=== PATIENT | male | born 1990 | race Caucasian/White ===

== ENCOUNTER → 2016-07-08 | Outpatient (CLI) | payer MEDICARE, MEDICAID ==
[~2016-07-08] MED LIST: ISOVUE-370 76% 100ML VIAL (Q9967) As Ordered ONE
--- NOTE | 2016-07-08 18:32 | REP ---
CT CHEST WITH CONTRAST: HISTORY: Lung nodule. CONTRAST: Isovue-370, 75 mL. COMPARISON: 10/31/2014 The 1.3 cm parenchymal nodule seen in the right lower lobe in the previous examination is not seen in the present examination. There are no new parenchymal nodules. The lungs are clear. There is no pleural effusion. Small lymph nodes less than 1 cm in size are present in the mediastinum. The heart is normal in size. The bony structure is intact. IMPRESSION: The 1.3 cm parenchymal nodule seen in the right lower lobe in the previous examination is not seen in the present examination. There are no new parenchymal nodules. Signed by Sanjiv Alicia MD 07/08/2016 06:35 P
== END ==
LOC: M RAD 16:36
PROVIDERS: ATTEND Family Medicine
DX: R91.1 Solitary pulmonary nodule (principal)
CPT/HCPCS: 71260; Q9967

== ENCOUNTER 2018-11-12 14:27 | Emergency (ER) | payer MEDICAID, MEDICARE, SELFPAY ==
[~2018-11-12] VITALS: Ht 177.8 cm; Wt 97.2 kg
[2018-11-12] MEDS ORDERED: VENTAER (14:40)
[2018-11-12] MEDS ORDERED: LISI10TA4 PO (14:40)
[2018-11-12] MEDS ORDERED: KEPP10002 PO (15:49)
[2018-11-12] MEDS ORDERED: levETIRAcetam INJection 1,000 MG in D5W 100 ML IV ONE (16:00)
[2018-11-12] MEDS ORDERED: IBUPROFEN 600 MG TAB PO ONE (16:00)
[2018-11-12 16:25] VITALS: BP 157/88
== END 2018-11-12 16:33 | disposition home or self-care (01) ==
LOC: M ED 14:27
DX: G40.909 Epilepsy, unspecified, not intractable, without status epilepticus (principal); F17.200 Nicotine dependence, unspecified, uncomplicated; Z88.8 Allergy status to other drugs, medicaments and biological substances; Z79.899 Other long term (current) drug therapy; Z91.14 Patient's other noncompliance with medication regimen
CPT/HCPCS: 96374; 99284; J1953

== ENCOUNTER 2018-11-23 01:36 | Emergency (ER) | payer MEDICAID ==
[~2018-11-23] VITALS: Ht 180.3 cm; Wt 93.2 kg
[~2018-11-23 01:36] MED LIST changes: -ISOVUE-370 76% 100ML VIAL (Q9967) As Ordered ONE; +KEPP10002 PO; +LISI10TA4 PO; +VENTAER
[2018-11-23] MEDS ORDERED: VALPROATE SOD IV ONE (02:00)
[2018-11-23] MEDS ORDERED: D5W IV ONE (02:00)
[2018-11-23] MEDS ORDERED: DEPA1TAB3 PO (02:13)
[2018-11-23 03:41] VITALS: BP 132/65
== END 2018-11-23 03:42 | disposition home or self-care (01) ==
LOC: M ED 01:36
DX: G40.909 Epilepsy, unspecified, not intractable, without status epilepticus (principal); S00.81XA Abrasion of other part of head, initial encounter; X58.XXXA Exposure to other specified factors, initial encounter; Y92.89 Other specified places as the place of occurrence of the external cause; I10 Essential (primary) hypertension; J45.909 Unspecified asthma, uncomplicated; Z79.899 Other long term (current) drug therapy; Z88.8 Allergy status to other drugs, medicaments and biological substances

== ENCOUNTER 2019-01-17 01:01 | Emergency (ER) | payer OTHER ==
[~2019-01-17] VITALS: Ht 177.8 cm; Wt 93.3 kg
[~2019-01-17 01:01] MED LIST changes: +DEPA1TAB3 PO
[2019-01-17 02:09] LABS: BASO # 0.1 10^3/uL (0.0-0.2); BASO % 0.9 % (0.0-1.0); EOS # 0.3 10^3/uL (0.0-0.50); EOS % 4.9 % (0.0-3.0); HEMATOCRIT 42.4 % (42.0-52.0); HEMOGLOBIN 14.8 g/dl (13.5-17.5); LYMPH # 2.8 10^3/uL (1.5-6.5); LYMPH % 41.8 % (24.0-44.0); MEAN CORPUSCULAR HEMOGLOBIN 30.3 pg (27.0-33.0); MEAN CORPUSCULAR HGB CONC 34.9 g/dl (32.0-36.5); MEAN CORPUSCULAR VOLUME 86.7 fl (80.0-96.0); MONO # 0.6 10^3/uL (0.0-0.8); MONO % 9.5 % (0.0-5.0); NEUTROPHILS # 2.9 10^3/uL (1.8-7.7); NEUTROPHILS % 42.6 % (36.0-66.0); PLATELET COUNT, AUTOMATED 268 10^3/uL (150-450); RED BLOOD COUNT 4.89 10^6/uL (4.30-6.10); WHITE BLOOD COUNT 6.7 10^3/uL (4.0-10.0)
[2019-01-17 02:25] LABS: AMPHETAMINES LEVEL URINE NEGATIVE (NEGATIVE); BARBITURATES URINE NEGATIVE (NEGATIVE); BENZODIAZEPINES URINE NEGATIVE (NEGATIVE); CANNABINOIDS URINE NEGATIVE (NEGATIVE); COCAINE METABOLITE URINE NEGATIVE (NEGATIVE); METHADONE URINE NEGATIVE (NEGATIVE); OPIATES URINE NEGATIVE (NEGATIVE); PHENCYCLIDINE URINE NEGATIVE (NEGATIVE)
[2019-01-17 02:29] LABS: BLOOD UREA NITROGEN 10 MG/DL (7-18); CALCIUM LEVEL 9.1 MG/DL (8.5-10.1); CARBON DIOXIDE LEVEL 28 MEQ/L (21-32); CHLORIDE LEVEL 107 MEQ/L (98-107); CREATININE FOR GFR 0.87 MG/DL (0.70-1.30); GLOMERULAR FILTRATION RATE > 60.0 (>60); GLUCOSE, FASTING 93 MG/DL (70-100); POTASSIUM SERUM 3.8 MEQ/L (3.5-5.1); SODIUM LEVEL 141 MEQ/L (136-145); VALPROIC ACID (DEPAKOTE) < 3.0 UG/ML (50.0-100.0)
[2019-01-17 03:00] VITALS: BP 148/78
== END 2019-01-17 03:40 | disposition left against medical advice (07) ==
LOC: M ED 01:01
DX: G40.909 Epilepsy, unspecified, not intractable, without status epilepticus (principal); Z91.19 Patient's noncompliance with other medical treatment and regimen; Z88.8 Allergy status to other drugs, medicaments and biological substances; F17.210 Nicotine dependence, cigarettes, uncomplicated

== ENCOUNTER 2019-02-21 21:02 | Emergency (ER) | payer OTHER ==
[~2019-02-21] VITALS: Ht 177.8 cm; Wt 96.3 kg
[2019-02-21 21:03] VITALS: BP 137/85
[2019-02-21] MEDS ORDERED: ADACEL/BOOSTRIX VACCINE (DIPHTH/PERTUSS/ACELL/TETANUS)0.5ML SYR (90715) IM ONE (21:30)
== END 2019-02-21 23:14 | disposition left against medical advice (07) ==
LOC: M ED 21:02
DX: Z53.21 Procedure and treatment not carried out due to patient leaving prior to being seen by health care provider (principal)

== ENCOUNTER 2019-11-16 21:03 | Emergency (ER) | payer OTHER ==
[~2019-11-16] VITALS: Ht 180.3 cm; Wt 90.9 kg
[2019-11-16] MEDS ORDERED: NS 1,000 ML IV ONE (21:45)
[2019-11-16 22:20] LABS: BASO # 0.1 10^3/uL (0.0-0.2); BASO % 1.1 % (0.0-1.0); EOS # 0.3 10^3/uL (0.0-0.5); EOS % 4.3 % (0.0-3.0); HEMATOCRIT 43.8 % (42.0-52.0); HEMOGLOBIN 15.1 g/dl (13.5-17.5); LYMPH # 2.9 10^3/uL (1.5-5.0); LYMPH % 39.8 % (24.0-44.0); MEAN CORPUSCULAR HEMOGLOBIN 30.1 pg (27.0-33.0); MEAN CORPUSCULAR HGB CONC 34.5 g/dl (32.0-36.5); MEAN CORPUSCULAR VOLUME 87.3 fl (80.0-96.0); MONO # 0.8 10^3/uL (0.0-0.8); MONO % 10.3 % (0.0-5.0); NEUTROPHILS # 3.2 10^3/uL (1.5-8.5); NEUTROPHILS % 44.2 % (36.0-66.0); PLATELET COUNT, AUTOMATED 253 10^3/uL (150-450); RED BLOOD COUNT 5.02 10^6/uL (4.30-6.10); WHITE BLOOD COUNT 7.3 10^3/uL (4.0-10.0)
[2019-11-16 22:53] LABS: ACETAMINOPHEN LEVEL < 2.0 UG/ML (10.0-30.0); ALBUMIN 3.8 GM/DL (3.2-5.2); ALT/SGPT 52 U/L (12-78); BILIRUBIN,DIRECT 0.1 MG/DL (0.0-0.2); BILIRUBIN,TOTAL 0.4 MG/DL (0.2-1.0); BLOOD UREA NITROGEN 8 MG/DL (7-18); CALCIUM LEVEL 8.6 MG/DL (8.5-10.1); CARBON DIOXIDE LEVEL 30 MEQ/L (21-32); CHLORIDE LEVEL 104 MEQ/L (98-107); CK-MB VALUE MASS 2.9 NG/ML (<3.6); CPK CREATINE PHOSPHOKINASE 310 U/L (39-308); CREATININE FOR GFR 0.82 MG/DL (0.70-1.30); ETHYL ALCOHOL (ETHANOL) < 0.003 % (0.000-0.010); GLOMERULAR FILTRATION RATE > 60.0 (>60); GLUCOSE, FASTING 83 MG/DL (70-100); MB/CK RELATIVE INDEX 0.94 (< OR =4); SALICYLATE LEVEL 2.6 MG/DL (5.0-30.0); SODIUM LEVEL 141 MEQ/L (136-145); TROPONIN I < 0.02 NG/ML (< 0.10); VALPROIC ACID (DEPAKOTE) 97.1 UG/ML (50.0-100.0)
[2019-11-16 23:32] LABS: AMPHETAMINES LEVEL URINE NEGATIVE (NEGATIVE); BARBITURATES URINE NEGATIVE (NEGATIVE); BENZODIAZEPINES URINE NEGATIVE (NEGATIVE); CANNABINOIDS URINE NEGATIVE (NEGATIVE); COCAINE METABOLITE URINE NEGATIVE (NEGATIVE); METHADONE URINE NEGATIVE (NEGATIVE); OPIATES URINE NEGATIVE (NEGATIVE); PHENCYCLIDINE URINE NEGATIVE (NEGATIVE)
[2019-11-16 23:45] VITALS: BP 116/61
--- NOTE | 2019-11-17 06:43 | ECGEPIP ---
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
== END 2019-11-16 23:58 | disposition home or self-care (01) ==
LOC: M ED 21:03
DX: G40.919 Epilepsy, unspecified, intractable, without status epilepticus (principal); F17.200 Nicotine dependence, unspecified, uncomplicated; Z79.51 Long term (current) use of inhaled steroids; Z79.899 Other long term (current) drug therapy; Z88.8 Allergy status to other drugs, medicaments and biological substances
CPT/HCPCS: 80048; 80076; 80164; 80307; 82550; 82553; 84443; 85025; 93005; 93041; 94760; 96360; 99285; G0480

== ENCOUNTER 2019-12-18 18:17 | Emergency (ER) | payer OTHER ==
[~2019-12-18] VITALS: Ht 180.3 cm; Wt 103.0 kg
[2019-12-18] MEDS ORDERED: LAMO25TA4 (18:21)
[2019-12-18 19:00] VITALS: BP 133/65
[2019-12-18] MEDS ORDERED: lamoTRIgine 25 MG TAB PO ONE (19:00)
== END 2019-12-18 19:15 | disposition home or self-care (01) ==
LOC: EDBD 18:17 → M ED 18:17
DX: G40.909 Epilepsy, unspecified, not intractable, without status epilepticus (principal); Z91.14 Patient's other noncompliance with medication regimen; I10 Essential (primary) hypertension; J45.909 Unspecified asthma, uncomplicated; R91.1 Solitary pulmonary nodule; F81.9 Developmental disorder of scholastic skills, unspecified; Z72.0 Tobacco use; Z79.899 Other long term (current) drug therapy; Z88.8 Allergy status to other drugs, medicaments and biological substances

== ENCOUNTER 2020-07-06 14:25 | Emergency (ER) | payer OTHER ==
[~2020-07-06] VITALS: Ht 180.3 cm; Wt 104.8 kg
[~2020-07-06 14:25] MED LIST changes: +LAMO25TA4; +LISI10TA22 PO; -LISI10TA4 PO
--- OUTSIDE RECORDS SUMMARY | 2020-07-06 14:40 | CCD ---
Author Author [facility] Organization [facility] Address Unknown Phone Unavailable Care Team Providers Care Mold Parter Name Role Phone VIKTORIA CRUZ, JORDAN Unavailable Unavailab VIKTORIA Hummel, MSN Unavailable Unavailab VIKTORIA Hummel, MSN Unavailable Unavailab VIKTORIA Hummel, MSN Unavailable Unavailab le CRUZ, VIKTORIA JENNY RADIO ANTENNA INSTALLER-C, MSN Unavailable Unavailab le CRUZ, VIKTORIA JENNY RADIO ANTENNA INSTALLER-C, MSN Unavailable Unavailab le CRUZ, VIKTORIA JENNY RADIO ANTENNA INSTALLER-C, MSN Unavailable Unavailab le CRUZ, VIKTORIA JENNY RADIO ANTENNA INSTALLER-C, MSN Unavailable Unavailab le CRUZ, VIKTORIA JENNY RADIO ANTENNA INSTALLER-C, MSN Unavailable Unavailab le CRUZ, VIKTORIA JENNY RADIO ANTENNA INSTALLER-C, MSN Unavailable Unavailab le CRUZ, VIKTORIA JENNY RADIO ANTENNA INSTALLER-C, MSN Unavailable Unavailab le CRUZ, VIKTORIA JENNY RADIO ANTENNA INSTALLER-C, MSN Unavailable Unavailab le CRUZ, VIKTORIA JENNY RADIO ANTENNA INSTALLER-C, MSN Unavailable Unavailab le CRUZ, VIKTORIA JENNY RADIO ANTENNA INSTALLER-C, MSN Unavailable Unavailab le CRUZ, VIKTORIA JENNY RADIO ANTENNA INSTALLER-C, MSN Unavailable Unavailab le CRUZ, VIKTORIA JENNY RADIO ANTENNA INSTALLER-C, MSN Unavailable Unavailab le CRUZ, VIKTORIA JENNY RADIO ANTENNA INSTALLER-C, MSN Unavailable Unavailab le CRUZ, VIKTORIA JENYN RADIO ANTENNA INSTALLER-C, MSN Unavailable Unavailab le CRUZ, VIKTORIA JENNY RADIO ANTENNA INSTALLER-C, MSN Unavailable Unavailab le CRUZ, VIKTORIA JENNY RADIO ANTENNA INSTALLER-C, MSN Unavailable Unavailab le CRUZ, VIKTORIA JENNY RADIO ANTENNA INSTALLER-C, MSN Unavailable Unavailab le CRUZ, VIKTORIA JENNY RADIO ANTENNA INSTALLER-C, MSN Unavailable Unavailab le CRUZ, VIKTORIA JENNY RADIO ANTENNA INSTALLER-C, MSN Unavailable Unavailab le CRUZ, VIKTORIA JENNY RADIO ANTENNA INSTALLER-C, MSN Unavailable Unavailab le CRUZ, VIKTORIA JENNY RADIO ANTENNA INSTALLER-C, MSN Unavailable Unavailab le CRUZ, VIKTORIA JENNY RADIO ANTENNA INSTALLER-C, MSN Unavailable Unavailab le CRUZ, VIKTORIA JENNY RADIO ANTENNA INSTALLER-C, MSN Unavailable Unavailab le CRUZ, VIKTORIA JENNY RADIO ANTENNA INSTALLER-C, MSN Unavailable Unavailab le CRZU, VIKTORIA JENNY RADIO ANTENNA INSTALLER-C, MSN Unavailable Unavailab le CRUZ, VIKTORIA JENNY RADIO ANTENNA INSTALLER-C, MSN Unavailable Unavailab le CRUZ, VIKTORIA JENNY RADIO ANTENNA INSTALLER-C, MSN Unavailable Unavailab le CRUZ, VIKTORIA JENNY RADIO ANTENNA INSTALLER-C, MSN Unavailable Unavailab le CURZ, VIKTORIA JENNY RADIO ANTENNA INSTALLER-C, MSN Unavailable Unavailab le CRUZ, VIKTORIA JENNY RADIO ANTENNA INSTALLER-C, MSN Unavailable Unavailab le CRUZ, VIKTORIA JENNY RADIO ANTENNA INSTALLER-C, MSN Unavailable Unavailab le CRUZ, VIKTORIA JENNY RADIO ANTENNA INSTALLER-C, MSN Unavailable Unavailab le CRUZ, VIKTORIA JENNY RADIO ANTENNA INSTALLER-C, MSN Unavailable Unavailab le CRUZ, VIKTORIA JENNY RADIO ANTENNA INSTALLER-C, MSN Unavailable Unavailab le CRUZ, VIKTORIA JENNY RADIO ANTENNA INSTALLER-C, MSN Unavailable Unavailab le CRUZ, VIKTORIA JENNY RADIO ANTENNA INSTALLER-C, MSN Unavailable Unavailab le CRUZ, VIKTORIA JENNY RADIO ANTENNA INSTALLER-C, MSN Unavailable Unavailab le CRUZ, VIKTORIA JENNY RADIO ANTENNA INSTALLER-C, MSN Unavailable Unavailab le LIU SR, ABDELRAHMAN HARVEY MD Unavailable Unavailable LIU SR, ABDELRAHMAN HARVEY MD Unavailable Unavailable LIU SR, ABDELRAHMAN HARVEY MD Unavailable Unavailable LIU SR, ABDELRAHMAN HARVEY MD Unavailable Unavailable LIU SR, ABDELRAHMAN HARVEY MD Unavailable Unavailable LIU SR, ABDELRAHMAN HARVEY MD Unavailable Unavailable LIU SR, ABDELRAHMAN HARVEY MD Unavailable Unavailable LIU SR, ABDELRAHMAN HARVEY MD Unavailable Unavailable LIU SR, ABDELRAHMAN HARVEY MD Unavailable Unavailable LIU SR, ABDELRAHMAN HARVEY MD Unavailable Unavailable LIU SR, ABDELRAHMAN HARVEY MD Unavailable Unavailable LIU SR, ABDELRAHMAN HARVEY MD Unavailable Unavailable LIU SR, ABDELRAHMAN HARVEY MD Unavailable Unavailable LIU SR, ABDELRAHAMN HARVEY MD Unavailable Unavailable LIU SR, ABDELRAHMAN HARVEY MD Unavailable Unavailable LIU SR, ABDELRAHMAN HARVEY MD Unavailable Unavailable LIU SR, ABDELRAHMAN HARVEY MD Unavailable Unavailable LIU SR, ABDELRAHMAN HARVEY MD Unavailable Unavailable LIU SR, ABDELRAHMAN HARVEY MD Unavailable Unavailable LIU SR, ABDELRAHMAN HARVEY MD Unavailable Unavailable LIU SR, ABDELRAHMAN HARVEY MD Unavailable Unavailable LIU SR, ABDELRAHMAN HARVEY MD Unavailable Unavailable LIU SR, ABDELRAHMAN HARVEY MD Unavailable Unavailable LIU SR, ABDELRAHMAN HARVEY MD Unavailable Unavailable LIU SR, ABDELRAHMAN HARVEY MD Unavailable Unavailable LIU SR, ABDELRAHMAN HARVEY MD Unavailable Unavailable LIU SR, ABDELRAHMAN HARVEY MD Unavailable Unavailable LIU SR, ABDELRAHMAN HARVEY MD Unavailable Unavailable LIU SR, ABDELRAHMAN HARVEY MD Unavailable Unavailable LIU SR, ABDELRAHMAN HARVEY MD Unavailable Unavailable LIU SR, ABDELRAHMAN HARVEY MD Unavailable Unavailable LIU SR, ABDELRAHMAN HARVEY MD Unavailable Unavailable LIU SR, ABDELRAHMAN CANDICE MD Unavailable Unavailable LIU SR, ABDELRAHMAN CANDICE MD Unavailable Unavailable LIU SR, ABDELRAHMAN CANDICE MD Unavailable Unavailable LIU SR, ABDELRAHMAN CANDICE MD Unavailable Unavailable LIU SR, ABDELRAHMAN CANDICE MD Unavailable Unavailable LIU SR, ABDELRAHMAN CANDICE MD Unavailable Unavailable LIU SR, ABDELRAHMAN CANDICE MD Unavailable Unavailable LIU SR, ABDELRAHMAN CANDICE MD Unavailable Unavailable LIU SR, ABDELRAHMAN CANDICE MD Unavailable Unavailable LIU SR, ABDELRAHMAN CANDICE MD Unavailable Unavailable LIU SR, ABDELRAHMAN CANDICE MD Unavailable Unavailable LIU SR, ABDELRAHMAN CANDICE MD Unavailable Unavailable LIU SR, ABDELRAHMAN CANDICE MD Unavailable Unavailable LIU SR, ABDELRAHMAN CANDICE MD Unavailable Unavailable LIU SR, ABDELRAHMAN CANDICE MD Unavailable Unavailable LIU SR, ABDELRAHMAN CANDICE MD Unavailable Unavailable LIU SR, ABDELRAHMAN CANDICE MD Unavailable Unavailable LIU SR, ABDELRAHMAN CANDICE MD Unavailable Unavailable LIU SR, ABDELRAHMAN CANDICE MD Unavailable Unavailable LIU SR, ABDELRAHMAN CANDICE MD Unavailable Unavailable LIU SR, ABDELRAHMAN CANDICE MD Unavailable Unavailable LIU SR, ABDELRAHMAN CANDICE MD Unavailable Unavailable Re-disclosure Warning The records that you are about to access may contain information from federally-assisted alcohol or drug abuse programs. If such information is present, then the following federally mandated warning applies: This information has been disclosed to you from records protected by federal confidentiality rules (42 CFR part 2). The federal rules prohibit you from making any further disclosure of this information unless further disclosure is expressly permitted by the written consent of the person to whom it pertains or as otherwise permitted by 42 CFR part 2. A general authorization for the release of medical or other information is NOT sufficient for this purpose. The Federal rules restrict any use of the information to criminally investigate or prosecute any alcohol or drug abuse patient.The records that you are about to access may contain highly sensitive health information, the redisclosure of which is protected by Article 27-F of the [facility] Public Health law. If you continue you may have access to information: Regarding HIV / AIDS; Provided by facilities licensed or operated by the [facility] Office of Mental Health; or Provided by the [facility] Office for People With Developmental Disabilities. If such information is present, then the following [facility] mandated warning applies: This information has been disclosed to you from confidential records which are protected by state law. State law prohibits you from making any further disclosure of this information without the specific written consent of the person to whom it pertains, or as otherwise permitted by law. Any unauthorized further disclosure in violation of state law may result in a fine or correction sentence or both. A general authorization for the release of medical or other information is NOT sufficient authorization for further disc losure. Encounters Encounter Providers Location Date Indications Data Source(s ) [facility] 06/12/2020 12:00:00 AM EST eCW1 ([facility] 02/18/2020 12:00:00 AM EDT eCW1 ([facility]) [facility] 01/31/2020 12:00:00 AM EDT eCW1 ([facility]) [facility] 01/25/2020 12:00:00 AM EDT eCW1 ([facility] 12/27/2019 12:00:00 AM EDT eCW1 ([facility]) [facility] 12/14/2019 12:00:00 AM EDT eCW1 ([facility]) Outpatient Attender: CANDICE LIU SR 11/17/2019 03:05:00 PM EDT [facility] 11/17/2019 12:00:00 AM EDT eCW1 ([facility]) Outpatient Attender: CANDICE LIU SRReferrer: JENNY RAE, MSN 10/15/2018 11:38:00 AM EDT - 10/15/2018 11:38:00 AM EDT [facility] Medications Medication Brand Name Start Date Product Form Dose Route Admi nistrative Instructions Pharmacy Instructions Status Indications Reaction Description Data Source(s) 25 mg 06/13/2020 12:00:00 AM EST tablet 60 TAKE 2 TABLETS BY MOUTH DAILY TAKE 2 TABLETS BY MOUTH DAILY SOLD: 06/14/2020 [facility] 5-325 mg 04/12/2020 12:00:00 AM EDT tablet 16 TAKE ONE TABLET BY MOUTH EVERY 6 HOURS NEEDED FOR PAIN, MAXIMUM DAILY DOSE = FOUR TABLETS TAKE ONE TABLET BY MOUTH EVERY 6 HOURS NEEDED FOR PAIN, MAXIMUM DAILY DOSE = FOUR TABLETS SOLD: 04/12/2020 [facility] 500 mg 04/12/2020 12:00:00 AM EDT capsule 21 TAKE ONE CAPSULE BY MOUTH EVERY 8 HOURS UNTIL FINISHED, MAXIMUM DAILY DOSE = 3 TAKE ONE CAPSULE BY MOUTH EVERY 8 HOURS UNTIL FINISHED, MAXIMUM DAILY DOSE = 3 SOLD: 04/12/2020 [facility] 25 mg 02/27/2020 12:00:00 AM EDT tablet 60 TAKE TWO TABLETS BY MOUTH EVERY DAY TAKE TWO TABLETS BY MOUTH EVERY DAY SOLD: 04/09/2020 [facility] 25 mg 02/27/2020 12:00:00 AM EDT tablet 60 TAKE TWO TABLETS BY MOUTH EVERY DAY TAKE TWO TABLETS BY MOUTH EVERY DAY SOLD: 02/28/2020 [facility] 90 mcg/actuation 02/15/2020 12:00:00 AM EDT HFA aerosol inha ler 18 INHALE 2 PUFFS BY MOUTH EVERY 6 HOURS NEEDED INHALE 2 PUFFS BY MOUTH EVERY 6 HOURS NEEDED SOLD: 02/15/2020 [facility] 25 mg 12/15/2019 12:00:00 AM EDT tablet 60 TAKE TWO TABLETS BY MOUTH EVERY DAY TAKE TWO TABLETS BY MOUTH EVERY DAY SOLD: 12/16/2019 [facility] 25 mg 12/15/2019 12:00:00 AM EDT tablet 60 TAKE TWO TABLETS BY MOUTH EVERY DAY TAKE TWO TABLETS BY MOUTH EVERY DAY SOLD: 01/24/2020 [facility] lamotrigine 25 MG Oral Tablet Lamotrigine 25 MG Lamotrigine 25 MG 11/17/2019 12:00:00 AM EDT 2.0 {tablet} active [place] motrigine 25 MG eCW1 ([facility]) lamotrigine 25 MG Oral Tablet Lamotrigine 25 MG Lamotrigine 25 MG 11/17/2019 12:00:00 AM EDT 2.0 {tablet} active [place] motrigine 25 MG eCW1 ([facility]) lamotrigine 25 MG Oral Tablet Lamotrigine 25 MG Lamotrigine 25 MG 11/17/2019 12:00:00 AM EDT 1.0 {tablet} active [place] motrigine 25 MG eCW1 ([facility]) lamotrigine 25 MG Oral Tablet Lamotrigine 25 MG Lamotrigine 25 MG 11/17/2019 12:00:00 AM EDT 2.0 {tablet} active [place] motrigine 25 MG eCW1 ([facility]) 25 mg 11/17/2019 12:00:00 AM EDT tablet 45 TAKE ONE TABLET BY MOUTH EVERY DAY FOR 2 WEEKS, THEN INCREASE TO 2 TABLETS ONCE DAILY FOR 2 WEEKS TAKE ONE TABLET BY MOUTH EVERY DAY FOR 2 WEEKS, THEN INCREASE TO 2 TABLETS ONCE DAILY FOR 2 WEEKS SOLD: 11/17/2019 [facility] lamotrigine 25 MG Oral Tablet Lamotrigine 25 MG Lamotrigine 25 MG 11/17/2019 12:00:00 AM EDT 2.0 {tablet} active La motrigine 25 MG eCW1 ([facility]) lamotrigine 25 MG Oral Tablet Lamotrigine 25 MG Lamotrigine 25 MG 11/17/2019 12:00:00 AM EDT 2.0 {tablet} active La motrigine 25 MG eCW1 ([facility]) lamotrigine 25 MG Oral Tablet Lamotrigine 25 MG Lamotrigine 25 MG 11/17/2019 12:00:00 AM EDT 2.0 {tablet} active La motrigine 25 MG eCW1 ([facility]) 500 mg 11/30/2018 12:00:00 AM EDT tablet,delayed release (DR/EC) 270 TAKE ONE TABLET BY MOUTH THREE TIMES A DAY TAKE ONE TABLET BY MOUTH THREE TIMES A D AY SOLD: 05/30/2019 [facility] Insurance Providers Payer name Policy type / Coverage type Policy ID Covered libertarian ID Covered libertarian's relationship to adkins Policy Adkins Plan Information [facility] COMMUNITY PLAN [facility] [id number] [facility] MEDICAID [id number] S [id number] [facility] COMMUNITY PLAN [facility] [id number] SP [id number] MEDICAID [id number] SP [id number] [facility] [id number] MEDICARE [id number] SP [id number] SELF PAY ONLY SP [facility]-Medicaid [id number] [facility] [id number] [facility] MEDICAID [id number] S [id number] [employer] MEDICAID [id number] S [id number] [facility]-Medicaid [id number] [facility]-Medicaid [id number] [facility]-Medicaid [id number] [facility]-Medicaid [id number] [facility]-Medicaid [id number] [facility]-Medicaid [id number] [facility] [id number] [facility]-Medicaid [id number] Medicare P [id number] S [id number] MEDICAID [id number] S [id number] SELF PAY SP [id number] S [id number] MEDICARE [id number] SP [id number] Self Pay P UNAVAILABLE S UNAVAILA BLE Medicaid Dental P UNAVAILABLE S UN AVAILABLE MEDICAID M [id number] S [id number] MEDICARE C [id number] S [id number] MEDICAID UNAVAILABLE UNAVAILA BLE BLUE [employer] [place] PL[employer] [id number] SP [id number] WELL[employer]ARE [id number] SP [id number] [facility] BLUE [id number] SP [id number] Problems, Conditions, and Diagnoses Code Display Name Description Problem Type Effective Dates Data Source(s) E66.9 [id number] Obesity (BMI 30.0-34.9) Problem 0 11/17/2019 12:00:00 AM EDT eCW1 ([facility]) F17.210 Nicotine dependence, cigarettes, uncompl icated NICOTINE DEPENDENCE, CIGARETTES, UNCOMPLICATED Diagnosis 11/17/2019 03:05:00 PM EDT [facility] E66.9 Obesity, unspecified OBESITY, UNSPECIFIED Diagnosis 11/17/2019 03:05:00 PM EDT [facility] R56.9 Unspecified convulsions UNSPECIFIED CONVULSIONS Diagno sis 11/17/2019 03:05:00 PM EDT [facility] F17.200 Nicotine dependence, unspecified, uncomp licated NICOTINE DEPENDENCE, UNSPECIFIED, UNCOMPLICATED Diagnosis 11/17/2019 03:05:00 PM EDT [facility] Vital Signs ID Date Data Source UNK Name Value Range Interpretation Code Description Data Source(s) Oxygen saturation in Arterial blood by Pulse oximetry 98 % 98 % eCW1 ([facility]) Respiratory rate 18 /min 18 /min eCW1 ([facility]) Heart rate 69 /min 69 /min eCW1 ([facility]) Body temperature 98.6 [degF] 98.6 [degF] eCW1 ( [facility]) Body mass index (BMI) [Ratio] 33.23 kg/m2 33.23 kg/m2 eCW1 ([facility]) Body weight 231.6 [lb_av] 231.6 [lb_av] eCW1 ([facility]) Body height 70 [in_i] 70 [in_i] eCW1 ([facility]) Patient Treatment Plan of Care Planned Activity Planned Date Details Description Data Source (s) lamotrigine 25 MG Oral Tablet 11/17/2019 12:00:00 AM EDT eCW1 ([facility]) lamotrigine 25 MG Oral Tablet 11/17/2019 12:00:00 AM EDT eCW1 ([facility]) lamotrigine 25 MG Oral Tablet 11/17/2019 12:00:00 AM EDT eCW1 ([facility]) lamotrigine 25 MG Oral Tablet 11/17/2019 12:00:00 AM EDT eCW1 ([facility]) lamotrigine 25 MG Oral Tablet 11/17/2019 12:00:00 AM EDT eCW1 ([facility]) lamotrigine 25 MG Oral Tablet 11/17/2019 12:00:00 AM EDT eCW1 ([facility]) lamotrigine 25 MG Oral Tablet 11/17/2019 12:00:00 AM EDT eCW1 ([facility])
--- OUTSIDE RECORDS SUMMARY | 2020-07-06 14:40 | CCD ---
Author Author [facility] Organization [facility] Address Unknown Phone Unavailable Care Team Providers Care Hydraulic Elevator Constructor Name Role Phone Halina Wesley Unavailable PROBLEMS Type Condition ICD9-CM Code FKI40-FQ Code Onset Dates Condition S tatus SNOMED Code Notes Problem History of marijuana use Z87.898 Active 0517241 00 Problem BMI 30.0-30.9,adult Z68.30 Active 357860142 Problem Obesity E66.9 Active 613635280 Problem Encounter for general adult medical examination without abnormal findings Z00.00 Active 791114287 Problem Alcohol use Z78.9 Active 587324 Problem Sleep disturbance G47.9 Active 07015289 Problem Hypertension, unspecified type I10 Active 3 4759731 Problem Encounter for general adult medical exam ination with abnormal findings Z00.01 Active 310318888 Problem Elevated blood pressure reading R03.0 Active 46442859 Problem Acute rhinosinusitis J01.90 Active 609292609 Problem Sore throat J02.9 Active 072440148 Problem Smoking F17.200 Active 57879603 Problem Mild intermittent asthma without complication J45. 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 977622627 Problem History of asthma Z87.09 Active 525822920 Problem Bronchitis J40 Active 77047852 Problem Nicotine dependence with current use F17.200 Act chyna 926785073 Problem Body mass index (BMI) of 30.0-30.9 in adult Z68.30 Active 333363738 Problem Obesity, unspecified E66.9 Active 052437615 ALLERGIES Allergen (clinical drug ingredient) Drug/Non Drug Allergy do cumented on EMR Reaction Allergy Type Onset Date Status levetiracetam Jtra([facility] Code:[address]-87) unknown Drug Allergy Active ENCOUNTERS from 1990 to 2020-06-12 Encounter Location Date Provider Diagnosis [address] [address] May, Halina Wesley Seizure R56.9 IMMUNIZATIONS Vaccine Route Administration Date Status Influenza preservative free IM Intramuscular May 27, 2018 Adm inistered SOCIAL HISTORY Sex Assigned At : Social History Observation Description Sex Assigned At Unknown Alcohol Screen Question Answer Notes Did you have a drink containing alcohol in the past year? No Points 0 Interpretation Negative REASON FOR REFERRAL No Information VITAL SIGNS No information MEDICATIONS Medication SIG (Take, Route, Frequency, Duration) Notes Start Da te End Date Status Lamotrigine 25 MG 2 tablet Orally a day for 30 days Nov Active Depakote 500 MG 1 tablet Orally three times a day for 90 days Nov, Active Ventolin HFA 108 (90 Base) MCG/ACT 2 puffs as needed I nhalation every 6 hrs for 30 days May, Active Depakote 125 MG 1 tablet Orally Twice a day for 30 day(s) Not-Taking PROCEDURES No Information RESULTS No Results REASON FOR VISIT RX MEDICAL (GENERAL) HISTORY Type Description Date Medical History asthma Medical History epilepsy, about 6 years ago. seizures due to stress, and grand mal Surgical History wisdom teeth removed Goals Section No Information Health Concerns No Information MEDICAL EQUIPMENT No Information MENTAL STATUS No Information FUNCTIONAL STATUS No Information ASSESSMENTS Encounter Date Diagnosis Assessment Notes Treatment Notes Treatm ent Clinical Notes May, Seizure (ICD-10 - R56.9) PLAN OF TREATMENT Medication Medication Name Sig Start Date Stop Date Lamotrigine 25 MG 2 tablet Orally a day for 30 days Nov, Ventolin HFA 108 (90 Base) MCG/ACT 2 puffs as needed I nhalation every 6 hrs for 30 days May, Next Appt Details Provider Name:Halina Jc, 2020-06-17 8 03:20:00 PM, [address] [place] [address], [phone], Insurance Providers Payer Name Payer Address Payer Phone Insured Name Patient Relati onship to Insured Coverage Start Date Coverage End Date [facility] [employer] MEDICAID [address] [facility] [id number] [place] Douglass self
--- OUTSIDE RECORDS SUMMARY | 2020-07-06 16:04 | CCD ---
Author Author [facility] Organization [facility] Address Unknown Phone Unavailable Care Team Providers Care Lpn Instructor Name Role Phone VIKTORIA CRUZ, JORDAN Unavailable Unavailab VIKTORIA Hummel, MSN Unavailable Unavailab VIKTORIA Hummel, MSN Unavailable Unavailab VIKTORIA Hummel, MSN Unavailable Unavailab le CRUZ, VIKTORIA JENNY PARKING RAMP ATTENDANT-C, MSN Unavailable Unavailab le CRZU, VIKTORIA JENNY PARKING RAMP ATTENDANT-C, MSN Unavailable Unavailab le CRUZ, VIKTORIA JENNY PARKING RAMP ATTENDANT-C, MSN Unavailable Unavailab le CRUZ, VIKTORIA JENNY PARKING RAMP ATTENDANT-C, MSN Unavailable Unavailab le CRUZ, VIKTORIA JENNY PARKING RAMP ATTENDANT-C, MSN Unavailable Unavailab le CRUZ, VIKTORIA JENNY PARKING RAMP ATTENDANT-C, MSN Unavailable Unavailab le CRUZ, VIKTORIA JENNY PARKING RAMP ATTENDANT-C, MSN Unavailable Unavailab le CRUZ, VIKTORIA JENNY PARKING RAMP ATTENDANT-C, MSN Unavailable Unavailab le CRUZ, VIKTORIA JENNY PARKING RAMP ATTENDANT-C, MSN Unavailable Unavailab le CRUZ, VIKTORIA JENNY PARKING RAMP ATTENDANT-C, MSN Unavailable Unavailab le CRUZ, VIKTORIA JENNY PARKING RAMP ATTENDANT-C, MSN Unavailable Unavailab le CRUZ, VIKTORIA JENNY PARKING RAMP ATTENDANT-C, MSN Unavailable Unavailab le CRUZ, VIKTORIA JENNY PARKING RAMP ATTENDANT-C, MSN Unavailable Unavailab le CRUZ, VIKTORIA JENNY PARKING RAMP ATTENDANT-C, MSN Unavailable Unavailab le CRUZ, VIKTORIA JENNY PARKING RAMP ATTENDANT-C, MSN Unavailable Unavailab le CRUZ, VIKTORIA JENNY PARKING RAMP ATTENDANT-C, MSN Unavailable Unavailab le CRUZ, VIKTORIA JENNY PARKING RAMP ATTENDANT-C, MSN Unavailable Unavailab le CRUZ, VIKTORIA JENNY PARKING RAMP ATTENDANT-C, MSN Unavailable Unavailab le CRUZ, VIKTORIA JENNY PARKING RAMP ATTENDANT-C, MSN Unavailable Unavailab le CRUZ, VIKTORIA JENNY PARKING RAMP ATTENDANT-C, MSN Unavailable Unavailab le CRUZ, VIKTORIA JENNY PARKING RAMP ATTENDANT-C, MSN Unavailable Unavailab le CRUZ, VIKTORIA JENNY PARKING RAMP ATTENDANT-C, MSN Unavailable Unavailab le CRUZ, VIKTORIA JENNY PARKING RAMP ATTENDANT-C, MSN Unavailable Unavailab le CRUZ, VIKTORIA JENNY PARKING RAMP ATTENDANT-C, MSN Unavailable Unavailab le CRUZ, VIKTORIA JENNY PARKING RAMP ATTENDANT-C, MSN Unavailable Unavailab le CRUZ, VIKTORIA JENNY PARKING RAMP ATTENDANT-C, MSN Unavailable Unavailab le CRUZ, VIKTORIA JENNY PARKING RAMP ATTENDANT-C, MSN Unavailable Unavailab le CRUZ, VIKTORIA JENNY PARKING RAMP ATTENDANT-C, MSN Unavailable Unavailab le CRUZ, VIKTORIA JENNY PARKING RAMP ATTENDANT-C, MSN Unavailable Unavailab le CRUZ, VIKTORIA JENNY PARKING RAMP ATTENDANT-C, MSN Unavailable Unavailab le CRUZ, VIKTORIA JENNY PARKING RAMP ATTENDANT-C, MSN Unavailable Unavailab le CRUZ, VIKTORIA JENNY PARKING RAMP ATTENDANT-C, MSN Unavailable Unavailab le CRUZ, VIKTORIA JENNY PARKING RAMP ATTENDANT-C, MSN Unavailable Unavailab le CRUZ, VIKTORIA JENNY PARKING RAMP ATTENDANT-C, MSN Unavailable Unavailab le CRUZ, VIKTORIA JENNY PARKING RAMP ATTENDANT-C, MSN Unavailable Unavailab le CRUZ, VIKTORIA JENNY PARKING RAMP ATTENDANT-C, MSN Unavailable Unavailab le CRUZ, VIKTORIA JENNY PARKING RAMP ATTENDANT-C, MSN Unavailable Unavailab le CRUZ, VIKTORIA JENNY PARKING RAMP ATTENDANT-C, MSN Unavailable Unavailab le LIU SR, ABDELRAHMAN [...] is protected by Article 27-F of the [facility] Public Health law. If you continue you may have access to information: Regarding HIV / AIDS; Provided by facilities licensed or operated by the [facility] Office of Mental Health; or Provided by the [facility] Office for People With Developmental Disabilities. If such information is present, then the following [facility] mandated warning applies: This information has been [...] law may result in a fine or detention sentence or both. A general authorization for the release of medical or other information is NOT sufficient authorization for further disc losure. Encounters Encounter Providers Location Date Indications Data Source(s ) Outpatient [facility] 06/12/2020 12:00:00 AM EST eCW1 ([facility]) Outpatient [facility] 02/18/2020 12:00:00 AM EDT eCW1 ([facility]) Outpatient [facility] 01/31/2020 12:00:00 AM EDT eCW1 ([facility]) Outpatient [facility] 01/25/2020 12:00:00 AM EDT eCW1 ([facility]) Outpatient [facility] 12/27/2019 12:00:00 AM EDT eCW1 ([facility]) Outpatient [facility] 12/14/2019 12:00:00 AM EDT eCW1 ([facility]) Outpatient Attender: CANDICE LIU SR 11/17/2019 03:05:00 PM EDT [facility] Outpatient [facility] 11/17/2019 12:00:00 AM EDT eCW1 ([facility]) Outpatient Attender: CANDICE LIU SRReferrer: JENNY RAE, MSN 10/15/2018 11:38:00 AM EDT - 10/15/2018 11:38:00 AM EDT [facility] Medications Medication Brand Name Start Date [...] {tablet} active La motrigine 25 MG eCW1 ([facility]) lamotrigine 25 MG Oral Tablet Lamotrigine 25 MG Lamotrigine 25 MG 11/17/2019 12:00:00 AM EDT 2.0 {tablet} active La motrigine 25 MG eCW1 ([facility]) lamotrigine 25 MG Oral Tablet Lamotrigine 25 MG Lamotrigine 25 MG 11/17/2019 12:00:00 AM EDT 1.0 {tablet} active La motrigine 25 MG eCW1 ([facility]) lamotrigine 25 MG Oral Tablet Lamotrigine 25 MG Lamotrigine 25 MG 11/17/2019 12:00:00 AM EDT 2.0 {tablet} active La motrigine 25 MG eCW1 ([facility]) 25 mg 11/17/2019 12:00:00 AM EDT tablet [...] {tablet} active La motrigine 25 MG eCW1 ([facility]) lamotrigine 25 MG Oral Tablet Lamotrigine 25 MG Lamotrigine 25 MG 11/17/2019 12:00:00 AM EDT 2.0 {tablet} active La motrigine 25 MG eCW1 ([facility]) lamotrigine 25 MG Oral Tablet Lamotrigine 25 MG Lamotrigine 25 MG 11/17/2019 12:00:00 AM EDT 2.0 {tablet} active La motrigine 25 MG eCW1 ([facility]) 500 mg 11/30/2018 12:00:00 AM EDT tablet,delayed release (DR/EC) 270 TAKE ONE TABLET BY MOUTH THREE TIMES A DAY TAKE ONE TABLET BY MOUTH THREE TIMES A D AY SOLD: 05/30/2019 Jason Starr s Insurance Providers Payer name Policy type / Coverage type Policy ID Covered democrat ID Covered democrat's relationship to adkins Policy Adkins Plan Information [facility] [id number] [facility] MEDICAID [id number] S [id number] [facility] [id number] SP [id number] MEDICAID [id number] SP [id number] [facility] [id number] MEDICARE [id number] SP [id number] S[address]F PAY ONLY SP [facility] [id number] [facility] [id number] [facility] MEDICAID [id number] S [id number] [employer] MEDICAID [id number] S [id number] [facility]-Medicaid [id number] [facility]-Medicaid [id number] [facility]-Medicaid [id number] [facility]-Medicaid [id number] [facility]-Medicaid [id number] [facility]-Medicaid [id number] [facility] [id number] [facility]-Medicaid [id number] Medicare P [id number] S [id number] MEDICAID [id number] S [id number] SELF PAY SP [id number] S [id number] MEDICARE [id number] SP [id number] Self Pay P UNAVAILABLE S UNAVAILA BLE Medicaid Dental P UNAVAILABLE S UN AVAILABLE MEDICAID M [id number] S [id number] MEDICARE C [id number] S [id number] MEDICAID UNAVAILABLE UNAVAILA BLE [employer] [id number] SP [id number] WELL[employer]ARE [id number] SP [id number] [facility] [id number] SP [id number] Problems, Conditions, and Diagnoses Code Display Name Description Problem Type Effective Dates Data Source(s) E66.9 [id number] Obesity (BMI 30.0-34.9) Problem 0 11/17/2019 12:00:00 AM EDT eCW1 [facility] F17.210 Nicotine dependence, cigarettes, uncompl icated NICOTINE DEPENDENCE, CIGARETTES, UNCOMPLICATED Diagnosis 11/17/2019 03:05:00 PM EDT [facility] E66.9 Obesity, unspecified OBESITY, UNSPECIFIED Diagnosis 11/17/2019 03:05:00 PM EDT [facility] R56.9 Unspecified convulsions UNSPECIFIED CONVULSIONS Diagno sis 11/17/2019 03:05:00 PM EDT [facility] F17.200 Nicotine dependence, unspecified, uncomp licated NICOTINE DEPENDENCE, UNSPECIFIED, UNCOMPLICATED Diagnosis 11/17/2019 03:05:00 PM EDT [facility] Vital Signs ID Date Data Source UNK Name Value Range Interpretation Code Description Data Source(s) Oxygen saturation in Arterial blood by Pulse oximetry 98 % 98 % eCW1 ([facility]) Respiratory rate 18 /min 18 /min eCW1 ([facility]) Heart rate 69 /min 69 /min eCW1 ([facility]) Body temperature 98.6 [degF] 98.6 [degF] eCW1 ( [facility]) Body mass index (BMI) [Ratio] 33.23 kg/m2 33.23 kg/m2 eCW1 ([facility]) Body weight 231.6 [lb_av] 231.6 [lb_av] eCW1 ([facility]) Body height 70 [in_i] 70 [in_i] eCW1 ([facility]) Patient Treatment Plan of Care Planned Activity Planned Date Details Description Data Source (s) lamotrigine 25 MG Oral Tablet 11/17/2019 12:00:00 AM EDT eCW1 ([facility]) lamotrigine 25 MG Oral Tablet 11/17/2019 12:00:00 AM EDT eCW1 ([facility]) lamotrigine 25 MG Oral Tablet 11/17/2019 12:00:00 AM EDT eCW1 ([facility]) lamotrigine 25 MG Oral Tablet 11/17/2019 12:00:00 AM EDT eCW1 ([facility]) lamotrigine 25 MG Oral Tablet 11/17/2019 12:00:00 AM EDT eCW1 ([facility]) lamotrigine 25 MG Oral Tablet 11/17/2019 12:00:00 AM EDT eCW1 ([facility]) lamotrigine 25 MG Oral Tablet 11/17/2019 12:00:00 AM EDT eCW1 ([facility])
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
[2020-07-06] MEDS ORDERED: LIDOCAINE 4% TOPICAL SOLN 50 ML BTL TOP ONE (17:15)
[2020-07-06] MEDS ORDERED: OXYMETAZOLINE 0.05% NASAL SPRAY (AFRIN) ONE (17:15)
[2020-07-06 18:41] VITALS: BP 152/84
== END 2020-07-06 18:43 | disposition home or self-care (01) ==
LOC: M ED 14:25
DX: S02.2XXA Fracture of nasal bones, initial encounter for closed fracture (principal); S02.401A Maxillary fracture, unspecified side, initial encounter for closed fracture; Y04.0XXA Assault by unarmed brawl or fight, initial encounter; Y92.099 Unspecified place in other non-institutional residence as the place of occurrence of the external cause; Y93.9 Activity, unspecified; Y99.9 Unspecified external cause status; R56.9 Unspecified convulsions; J45.909 Unspecified asthma, uncomplicated; E78.5 Hyperlipidemia, unspecified; F17.200 Nicotine dependence, unspecified, uncomplicated; Z79.899 Other long term (current) drug therapy; Z88.8 Allergy status to other drugs, medicaments and biological substances

== ENCOUNTER 2022-02-09 21:50 | Emergency (ER) | payer OTHER ==
[~2022-02-09] VITALS: Ht 177.8 cm; Wt 200.0 kg
[2022-02-09 23:13] LABS: ALBUMIN 3.6 GM/DL (3.2-5.2); ALT/SGPT 34 U/L (12-78); BILIRUBIN,DIRECT 0.1 MG/DL (0.0-0.2); BILIRUBIN,TOTAL 0.4 MG/DL (0.2-1.0); BLOOD UREA NITROGEN 18 MG/DL (7-18); CALCIUM LEVEL 8.9 MG/DL (8.5-10.1); CARBON DIOXIDE LEVEL 23 MEQ/L (21-32); CHLORIDE LEVEL 108 MEQ/L (98-107); CREATININE FOR GFR 0.89 MG/DL (0.70-1.30); ETHYL ALCOHOL (ETHANOL) < 0.003 % (0.000-0.010); GLOMERULAR FILTRATION RATE > 60.0 (>60); GLUCOSE, FASTING 103 MG/DL (70-100); OSMOLALITY SERUM 286 MOSM/KG (275-295); POTASSIUM SERUM 4.5 MEQ/L (3.5-5.1); SODIUM LEVEL 137 MEQ/L (136-145)
[2022-02-09] MEDS ORDERED: LAMI1TAB9 PO (23:20)
[2022-02-09 23:24] LABS: BASO # 0.1 10^3/uL (0.0-0.2); BASO % 0.6 % (0.0-1.0); EOS # 0.6 10^3/uL (0.0-0.5); HEMATOCRIT 41.3 % (42.0-52.0); HEMOGLOBIN 14.3 g/dl (13.5-17.5); LYMPH % 27.6 % (24.0-44.0); MEAN CORPUSCULAR HEMOGLOBIN 30.4 pg (27.0-33.0); MEAN CORPUSCULAR HGB CONC 34.6 g/dl (32.0-36.5); MEAN CORPUSCULAR VOLUME 87.7 fl (80.0-96.0); MONO # 0.7 10^3/uL (0.0-0.8); MONO % 6.4 % (2.0-8.0); NEUTROPHILS # 6.3 10^3/uL (1.5-8.5); NEUTROPHILS % 59.1 % (36.0-66.0); PLATELET COUNT, AUTOMATED 302 10^3/uL (150-450); RED BLOOD COUNT 4.71 10^6/uL (4.30-6.10); WHITE BLOOD COUNT 10.7 10^3/uL (4.0-10.0)
[2022-02-09] MEDS ORDERED: lamoTRIgine 100MG TAB PO ONE ×2 (23:25→23:40)
[2022-02-10 00:59] LABS: AMPHETAMINES LEVEL URINE NEGATIVE (NEGATIVE); BARBITURATES URINE NEGATIVE (NEGATIVE); BENZODIAZEPINES URINE NEGATIVE (NEGATIVE); CANNABINOIDS URINE NEGATIVE (NEGATIVE); COCAINE METABOLITE URINE NEGATIVE (NEGATIVE); METHADONE URINE NEGATIVE (NEGATIVE); OPIATES URINE NEGATIVE (NEGATIVE); PHENCYCLIDINE URINE NEGATIVE (NEGATIVE)
[2022-02-10 01:52] VITALS: BP 167/87
== END 2022-02-10 01:54 | disposition home or self-care (01) ==
LOC: EDSEX 21:50 → M ED 21:50 → EDBD 21:50 → M ED 02-10 01:54
DX: G40.909 Epilepsy, unspecified, not intractable, without status epilepticus (principal); I10 Essential (primary) hypertension; R91.1 Solitary pulmonary nodule; J45.909 Unspecified asthma, uncomplicated; F17.200 Nicotine dependence, unspecified, uncomplicated; Z79.899 Other long term (current) drug therapy; Z88.8 Allergy status to other drugs, medicaments and biological substances

== ENCOUNTER → 2024-09-30 | Outpatient (REF) | payer OTHER ==
[~2024-09-30] MED LIST changes: +LAMI1TAB9 PO
[2024-09-30 14:00] LABS: ALBUMIN 3.9 G/DL (3.2-5.2); ALKALINE PHOSPHATASE 65 U/L (40-129); ALT/SGPT 31 U/L (7.0-40); AST/SGOT 20 U/L (<34); BILIRUBIN,TOTAL 0.5 MG/DL (0.3-1.2); BLOOD UREA NITROGEN 13 MG/DL (9-23); CALCIUM LEVEL 9.1 MG/DL (8.5-10.1); CARBON DIOXIDE LEVEL 29 MMOL/L (20-31); CHLORIDE LEVEL 103 MMOL/L (98-107); CHOLESTEROL LEVEL 114 MG/DL (<200); CHOLESTEROL RISK RATIO 3.12 (<5); CREATININE FOR GFR 0.85 MG/DL (0.70-1.30); GLOMERULAR FILTRATION RATE > 90.0 (>60); GLUCOSE, FASTING 88 MG/DL (60-100); HDL CHOLESTEROL 36.5 MG/DL (>40); LDL CHOLESTEROL 58.7 MG/DL (<100); NON-HDL-C 77.5 MG/DL; POTASSIUM SERUM 4.8 MMOL/L (3.5-5.1); SODIUM LEVEL 137 MMOL/L (136-145); TOTAL PROTEIN 7.2 G/DL (5.7-8.2); TRIGLYCERIDES LEVEL 94 MG/DL (<150)
[2024-09-30 14:02] LABS: THYROID STIMULATING HORMONE 2.549 uIU/ML (0.55-4.78)
[2024-09-30 14:03] LABS: TOTAL 25(OH) VITAMIN D 32.5 NG/ML (20.0-100.0)
[2024-09-30 14:17] LABS: HEMOGLOBIN A1c 4.9 % (4.0-6.0)
[2024-09-30 14:33] LABS: HIV 1&2 SCREEN NEGATIVE (NEGATIVE)
[2024-09-30 14:41] LABS: HEPATITIS C VIRUS ABY INDEX 0.03 INDEX (<0.8)
[2024-10-01 13:17] LABS: CREATININE, URINE 158.8 MG/DL; MALB URINE SIEMENS < 3.0 MG/L
== END ==
LOC: M LAB REF 12:26
PROVIDERS: ATTEND Physician Assistant
DX: R03.0 Elevated blood-pressure reading, without diagnosis of hypertension (principal); Z11.9 Encounter for screening for infectious and parasitic diseases, unspecified; E66.9 Obesity, unspecified; E55.9 Vitamin D deficiency, unspecified